=== PATIENT | female | born 1990 | race Caucasian/White ===

== ENCOUNTER 2016-07-03 19:02 | Emergency (ER) | payer OTHER ==
[~2016-07-03] VITALS: Ht 157.5 cm; Wt 79.5 kg
[~2016-07-03 19:02] MED LIST: DOCU-41 PO; OXYC-474 PO; PREN1TAB80 PO
[2016-07-03 19:04] VITALS: BP 144/88; PULSE 115; RESP 16; O2SAT 99
[2016-07-03] MEDS ORDERED: PRE20 PO (19:09)
[2016-07-03] MEDS ORDERED: FLUT12AE8 IH (19:09)
[2016-07-03] MEDS ORDERED: ALBU0.63 INHALATION (19:09)
[2016-07-03] MEDS ORDERED: SYMINH INHALATION (19:09)
[2016-07-03] MEDS ORDERED: ALBU8.5H2 INHALATION (19:09)
[2016-07-03] MEDS ORDERED: GABA600T2 PO (19:10)
[2016-07-03] MEDS ORDERED: GABA-500 PO (19:10)
--- NOTE | 2016-07-03 19:55 | DRSVH ---
PROCEDURE: X-RAY CHEST, TWO VIEWS ([id number]) INDICATIONS: chest heaviness/pain TECHNIQUE: 2 views of the chest were acquired. COMPARISON: [facility], , CHEST 1VW (PORTABLE), 01/30/2014, 23:16. FINDINGS: Surgical changes and devices: None. Lungs and pleura: No pleural effusions or pneumothorax. Lungs are clear. Mediastinum: Mediastinal contours are normal. Heart size is normal. Bones and chest wall: No suspicious bony abnormalities. Soft tissues appear unremarkable. IMPRESSION: No acute process. Dictated by: Jenny Santiago M.D. on 07/03/2016 at 19:54 Approved by: Jenny Santiago M.D. on 07/03/2016 at 19:54
[2016-07-03 20:02] LABS: BASOPHILS % (AUTO) 0.2 % (0-3); EOSINOPHILS % (AUTO) 0.1 % (0-5); MONOCYTES % (AUTO) 5.3 % (4-12); Mean Corpuscular Hemoglobin 28.6 pg (27.0-35.0); Mean Corpuscular Volume 88.9 fL (81-100); NEUTROPHILS % (AUTO) 81.1 % (40-74); Platelet Count 377 bil/L (150-400)
[2016-07-03 20:34] LABS: Magnesium 2.2 mg/dL (1.6-2.6); TROPONIN T < 0.010 ug/L (0.0-0.011)
--- NOTE | 2016-07-03 21:02 | ED.REPORT ---
HPI-General Illness Date of Service Jul 03, 2016 ED Provider: Luis Armando Fragoso MD Patient is a 26 year old female with a history of asthma and migraine headaches who presents to the ED complaining that she has felt chilled and generally unwell for the past 3 days. Patient reports associated myalgias, headache, nausea, and chest pain with deep breath. Patient reports eating and drinking normally. Patient states that her asthma has been acting up for several months. She is on her last day of a prednisone course and recently received a new inhaler and nebulizer. Patient admits that she still smokes cigarettes occasionally. Patient denies a fever, diarrhea, vomiting, constipation, dysuria , dark urine, light stool, abdominal pain, or cough. There is no one in [place] that is currently sick with similar symptoms. The patient typically takes Excedrin for her migraine headaches, last dose two weeks ago. She does not use Tylenol on a regular basis. Patient denies any recent alcohol binge. Nursing Notes Stated Complaint: SHAKY,LIGHT HEADED,HEADACHE,NAUSEA,CHEST PRESSURE Chief Complaint: Chest Pain Nursing Notes Reviewed: Yes Allergies: Coded Allergies: latex (Verified Allergy, Severe, Anaphylaxis, 07/03/16) misoprostol (Verified Allergy, Intermediate, rash, facial swelling, itching, 07/03/16) hydrocodone bitartrate (Verified Allergy, Unknown, rash,vomiting, difficulty breathing, 07/03/16) ibuprofen (Verified Adverse Reaction, Intermediate, stomach ulcers, ) Scheduled Budesonide/Formoterol 160-4.5 mcg Inh (Symbicort 160-4.5 mcg Inh) 120 Puff Inhaler 2 PUFF INHALATION BID Fluticasone Propionate (Flovent HFA 110 mcg) 12 Gm Aer.w.adap 2 PUFFS IH BID Gabapentin (Gabapentin) 100 Mg Capsule 100 MG PO QAM Gabapentin (Gabapentin) 600 Mg Tablet 600 MG PO HS Prednisone (PredniSONE) 20 Mg Tablet 20 MG PO DAILY took last dose of taper this am Scheduled PRN Albuterol HFA (Proair HFA) 8.5 Gm Hfa.aer.ad 2 PUFFS INHALATION Q4H PRN PRN For Shortness of Breath Albuterol Neb Soln (Albuterol Neb Soln) 0.63 Mg/3 Ml Vial.neb 0.63 MG INHALATION Q4H PRN PRN For Wheezing Promethazine HCl (Phenergan) 25 Mg Supp.rect 25 MG RC TID PRN PRN For Nausea General Time Seen by MD: 21:01 Chief Complaint Not feeling well, Other (chills) Hx Obtained From: Patient Arrived By: Walk-in Sudden in Onset?: No Onset Occurred: 3 days ago Symptom Duration: Since onset Location: : Head Quality: Painful Severity: Current: Moderate Severity: Maximum: Moderate Recent Healthcare: No recent doctor visit, No recent hospitalization Similar Sx Previous: No Past Medical History Past Medical History HTN and anemia with RH negative chronic back pain Reports: Asthma Reports: Migraines Past Surgical History none reported Family History non-contributory Smoking History Current Some Day Smoker Social History Drug Use: Denies drug use Other Social History: Good social support, Lives with children, Local resident Ambulatory Status Independent Review of Systems + denies changes in her urine or stool color Full Review of Systems Constitutional: Reports: Chills, Denies: Fever Respiratory: Reports: Pleuritic pain, Shortness of breath, Denies: Non-productive cough GI: Reports: Nausea, Denies: Abdominal pain, Bloody/tarry stool, Constipation, Diarrhea, Vomiting Female: Denies: Dysuria Musculoskeletal: Reports: Myalgia Neurologic: Reports: Headache Complete sys rev & neg: except as marked. Physical Exam Vital Signs Vital Signs Date Time Temp Pulse Resp B/P Pulse Ox O2 Delivery O2 Flow Rate FiO2 07/03/16 22:34 37.0 88 16 138/79 96 Room Air 07/03/16 19:04 37.0 115 16 144/88 99 Room Air Initial VS: Reviewed Head / Eyes: Atraumatic, Normocephalic, PERRL Neck: Supple, Full range of motion Respiratory: Breath sounds normal, Clear to auscultation, No respiratory distress Cardiovascular: Regular rate & rhythm, Heart sounds normal Extremities: No swelling, No tenderness Skin: Warm, Dry, No cyanosis Neurologic: Alert, Oriented, Nonfocal Psychiatric: Mood/affect normal, Behavior normal, Normal thought content General/Constitutional: Awake, Alert Distress / Hydration: Positive: Dehydration mild Appearance / Presentation: Positive: Obese ENT: Airway patent Mouth: Positive: Mucous membranes dry thrush of the oropharynx Abdomen: Soft, Non-tender, No guarding, No rebound Organomegaly / Mass / Hernia: Negative: Hepatomegaly, Splenomegaly Interpretation & Diagnostics Lab Results Interpretation Result Diagram: 07/03/16193107/03/161931 Test 07/03/16 19:32 07/03/16 21:50 White Blood Count 13.3th/mm3 (3.8-10.1) Red Blood Count 5.03mil/mm3 (3.90-5.20) Hemoglobin 14.4g/dL (12.0-15.6) Hematocrit 44.7% (35.0-46.0) Mean Corpuscular Volume 88.9fL (81-100) Mean Corpuscular Hemoglobin 28.6pg (27.0-35.0) Mean Corpuscular Hemoglobin Concent 32.2% (32.0-37.0) Red Cell Distribution Width 15.7% (12.3-15.4) Platelet Count 377bil/L (150-400) Neutrophils (%) (Auto) 81.1% (40-74) Lymphocytes (%) (Auto) 12.1% (14-46) Monocytes (%) (Auto) 5.3% (4-12) Eosinophils (%) (Auto) 0.1% (0-5) Basophils (%) (Auto) 0.2% (0-3) Sodium Level 138mEq/L (134-144) Potassium Level 4.4mEq/L (3.5-5.2) Chloride Level 98mEq/L (97-108) Carbon Dioxide Level 22mmol/L (18-29) Blood Urea Nitrogen 14mg/dL (6-20) Creatinine 0.64mg/dL (0.57-1.00) Estimat Glomerular Filtration Rate 163mL/min (>59) Glucose Level 115mg/dL (60-99) Calcium Level 9.7mg/dL (8.5-10.1) Magnesium Level 2.2mg/dL (1.6-2.6) Total Bilirubin 0.2mg/dL (0.0-1.2) Aspartate Amino Transf (AST/SGOT) 340U/L (0-50) Alanine Aminotransferase (ALT/SGPT) 502U/L (0-32) Alkaline Phosphatase 96U/L (25-150) Troponin T < 0.010ug/L (0.0-0.011) Total Protein 7.8g/dL (6.4-8.4) Albumin 4.6g/dL (3.4-5.0) Hold Nix Top Tube Received (Received) Hepatitis C Comment . Monoscreen Negative (Negative) ECG Interpretation ECG Interpretation: Sinus tachycardia, Rate 104 Time: 21:15 Interpreted by: ED physician Normal ECG Interpretation: No acute ischemic changes X-Ray Chest Interpretation Chest Xray Interpretation: IMPRESSION: No acute process. Dictated by: Jenny Santiago M.D. on 07/03/2016 at 19:54 Approved by: Jenny Santiago M.D. on 07/03/2016 at 19:54 Interpretation / Wet Read by: Interpret - Radiologist Re-Eval/Medical Decision Med Decision/Clinical Course 26-year-old with history of asthma presents with nonspecific complaints and malaise nausea low-grade headache for the background of migraines. She is discovered to have an incidental finding of elevated liver function tests, specifically her AST and ALT.bilirubin and alkaline phosphatase are normal. Hepatitis screen is pending. Monospot was negative. Meds she is on currently include finishing prednisone taper plus inhaled steroids. She is on gabapentin, but this has Almost No Association with Liver Function Abnormalities, As It Is not metabolized hepatically. If her hepatitis screens are negative, I would more suspect fatty liver disease. This may or may not be exacerbated by her prednisone, which can certainly cause cholestasis and chemical hepatitis independently. She has stopped her prednisone at this point. She continues on inhaled steroids only. I have suggested she follow up with her doctor before she moves from the area. A repeat of LFTs in two weeks and ultrasound the meantime to evaluate for fatty liver disease would be advised. Hepatitis screen and hemoglobin A1c will be available tomorrow for her doctor's review Source of Hx: Old records Time of Eval: 22:15 Patient Status: Condition improved Re-Evaluation/Progress Note: Rechecked the patient, who feels improved. Discussed her lab results, with elevated liver enzymes. This could be due to her medications. She will need to have her enzymes rechecked in 2 weeks. She will be moving to [place] in 2-3 weeks. Discussed her asthma and thrush. Smoking cessation advised. Patient understands and agrees with the plan to be discharged home. Discharge instructions and follow-up discussed. All questions were addressed. Return to the ED warnings given. Counseled Regarding: Diagnosis, Lab results, Need for follow-up, When/why to return to ED Discharge & Departure Primary Impression: Hepatitis Additional Impressions: Steroid-dependent asthma Asthma severity: moderate persistent Asthma complication type: uncomplicated Qualified Code: J45.40 - Moderate persistent asthma, uncomplicated Thrush, oral Disposition: Home Discharge Condition All VS Reviewed: Yes Condition: Stable Patient Instructions: Low Fat Diet (ED), Non-Alcoholic Fatty Liver Disease (ED) Additional Instructions: It is critical that you quit smoking. You may be able to be weaned from your steroid medicines and not go back on prednisone, but this is much less likely if you continue to smoke even a small amount. We do not have a specific cause for your liver irritation identified, but areas labs are pending and will be available tomorrow. Steroids can induce liver irritation of this sort, and the fact that you have tapered off means that if that is the cause, this will resolve spontaneously. Communicate with your doctor's office tomorrow, and they should repeat your labs in about two weeks before you moved to [place]. They can also schedule a fasting morning ultrasound to evaluate your liver and gallbladder. Fatty liver disease, related to diet and body mass, can also cause this pattern of enzyme elevation. Phenergan as needed for nausea. This is also a good treatment for migraine. Usually it as a second line, after you have tried caffeine and Excedrin. Return if any immediate issues. Low-fat diet and advance slowly as tolerated Referrals: [facility] (PCP) Scribe Attestation Portions of this note were transcribed by Debbi Dowd. I, Dr. Fragoso personally performed the history, physical exam and medical decision-making; I reviewed and confirmed the accuracy of the information in the transcribed note. Signed by: Ana English, 07/03/2016 0336 copies to: [facility] Luis Armando Fragoso MD Jul 03, 2016 21:02 Debbi Dowd Jul 03, 2016 21:10
[2016-07-03] MEDS ORDERED: Ondansetron 8 mg ODT Tablet PO ONE (21:20)
[2016-07-03] MEDS ORDERED: PROM25SU46 RC (22:08)
[2016-07-03 22:34] VITALS: BP 138/79; PULSE 88; RESP 16; O2SAT 96
[2016-07-05 03:08] LABS: Hepatitis A Antibody IgM Negative (Negative); Hepatitis B Core Antibody IgM Negative (Negative)
== END 2016-07-03 22:39 | disposition home or self-care (01) ==
LOC: SED 19:02
DX: K75.9 Inflammatory liver disease, unspecified (principal); B37.0 Candidal stomatitis; J45.40 Moderate persistent asthma, uncomplicated; R07.89 Other chest pain; F17.200 Nicotine dependence, unspecified, uncomplicated; G89.29 Other chronic pain; Z86.69 Personal history of other diseases of the nervous system and sense organs; Z79.51 Long term (current) use of inhaled steroids; Z79.52 Long term (current) use of systemic steroids; Z88.5 Allergy status to narcotic agent; Z88.6 Allergy status to analgesic agent; Z88.8 Allergy status to other drugs, medicaments and biological substances
CPT/HCPCS: 36415; 71020; 80053; 83036; 83735; 84484; 85025; 86308; 86705; 86709; 87340; 87341; 93005; 99285; G0472; Q0169